=== PATIENT | female | born 1980 | race Caucasian/White ===

== ENCOUNTER 2024-01-08 10:55 | Emergency (ER) | payer MEDICAID, SELFPAY ==
[2024-01-08 10:55] VITALS: BP 121/88; PULSE 85; RESP 16; TEMP 35.6; O2SAT 99
--- NOTE | 2024-01-08 10:58 | ED.SKABFB ---
HPI - Skin/Abscess/Foreign Bdy General Chief complaint: Skin/Abscess/Foreign Body Stated complaint: foreign object in foot Time Seen by Provider: 01/08/24 10:58 Source: patient Mode of arrival: ambulatory Limitations: no limitations History of Present Illness HPI narrative: 43-year-old female presents to the ED with -- foreign body on the plantar aspect of the 1st webspace. patient was walking barefoot on 01/03/2024 when a foreign body penetrated the 1st webspace. Currently she is noted to have tenderness and erythema extending to the top of foot around the 1st webspace. --Questionable Foreign body over the lateral sole of the left foot no fever or chills MD complaint: other ( cellulitis of right 1st webspace and left lateral foot) Onset (ago): day(s) ( 5 days) Tetanus up to date: no Location: L foot and R foot Severity: mild Relieving factors: none Exacerbating factors: none Associated symptoms: denies other symptoms Treatments prior to arrival: none Related Data Allergies Allergy/AdvReac Type Severity Reaction Status Date / Time No Known Allergies Allergy Verified 01/08/24 11:09 Review of Systems Review of Systems: All systems reviewed & are unremarkable except as noted in HPI and below Constitutional: Constitutional: Reports as per HPI Eyes: Eyes: Reports as per HPI and Reports no additional eye complaints ENT: Reports system reviewed and no additional complaints, except as documented and Reports as per HPI Cardiovascular: Cardiovascular: Reports as per HPI and Reports no additional cardiovascular complaints Respiratory: Respiratory: Reports as per HPI and Reports no additional respiratory complaints Gastrointestinal: Gastrointestinal: Reports as per HPI and Reports no additional gastrointestinal complaints Genitourinary: Genitourinary: Reports no additional female genitourinary complaints and Reports as per HPI Musculoskeletal: Musculoskeletal: Reports no additional musculoskeletal complaints and Reports as per HPI Integumentary/Breasts: Comments: tenderness and redness in the right 1st webspace tenderness and redness over the left lateral foot Neurologic: Reports system reviewed and no additional complaints, except as documented and Reports as per HPI Psychiatric: Psychiatric: Reports no additional psychiatric complaints and Reports as per HPI Endocrine: Endocrine: Reports no additional endocrine complaints and Reports as per HPI Hematologic/Lymphatic: Hematologic/Lymphatic: Reports no additional hematologic/lymphatic complaints and Reports as per HPI Allergic/Immunologic: Allergic/Immunologic: Reports no additional allergic/immunologic complaints and Reports as per HPI Exam Narrative: afebrile. Vital stable. Const: General: no acute distress Nutritional Appearance: well nourished Orientation/consciousness: patient oriented x3 Limitations: no limitations HENMT: Head: normal to inspection Ears: external ears normal Face/Nose/Sinus: Normal external nose present Face and sinus: normal facial exam Mouth: Yes Normal oral and palatal mucosa present Throat: posterior oropharynx normal Eyes: Conjunctivae: conjunctivae normal Pupils: Equal, round and reactive pupils present EOM: EOMs intact bilaterally Direct Ophthalmoscopy: no photophobia Neck: Neck: normal visual inspection and no lymphadenopathy Chest: Chest palpation & inspection: normal inspection of the chest Resp: Effort & Inspection: normal respiratory effort Auscultation: clear to auscultation bilaterally Cardio: Rate: regular rate Rhythm: regular rhythm GI: GI Palp: Yes Soft to palpation Auscultation: normal bowel sounds Other: No tenderness/ rigidity / rebound. : General: Yes no CVA tenderness Back/Spine/Pelvis: Back: no CVA tenderness Skin: General skin exam: normal color Other: Right foot 1st web space-- tender skin nodule measuring 1 cm on the plantar aspect of the 1st webspace with surro
[2024-01-08] MEDS: TETANUS,DIPHTHERIA,AC PERTUSSIS ADULT 0.5 ML (ADACEL) IM (11:13)
[2024-01-08] MEDS: LIDOCAINE HCL 1% LOCAL INJ 10 ML VIAL 5 ML INFILTRATE (11:14)
[2024-01-08] MEDS: NEOMYCIN/POLYMYXIN/BACITRACIN OINTMENT PACKET 1 PACKET TOPICAL (11:42)
== END 2024-01-08 11:47 | disposition home or self-care (01) ==
LOC: CHSED 11:42
PROVIDERS: Emergency Provider Internal Medicine Critical Care Medicine
DX: S91.342A Puncture wound with foreign body, left foot, initial encounter (principal); L03.115 Cellulitis of right lower limb; Z23 Encounter for immunization; W45.8XXA Other foreign body or object entering through skin, initial encounter
CPT/HCPCS: 28190; 90715; 99283

== ENCOUNTER 2024-01-30 17:45 | Emergency (ER) | payer MEDICAID, SELFPAY ==
[2024-01-30 17:52] VITALS: BP 162/88; PULSE 98; RESP 20; TEMP 36.6; O2SAT 99
--- NOTE | 2024-01-30 23:11 | PC.NURSE ---
Patient was called out in triage area for a room; no answer
--- NOTE | 2024-01-30 23:26 | PC.NURSE ---
Patient was again called out in triage area to be taken back to a room; no answer
== END 2024-01-30 23:42 | disposition left against medical advice (07) ==
LOC: ANHED 23:42
DX: F10.239 Alcohol dependence with withdrawal, unspecified (principal); Y90.9 Presence of alcohol in blood, level not specified
CPT/HCPCS: 99199

== ENCOUNTER 2025-04-17 10:29 | Emergency (ER) | payer SELFPAY ==
--- OUTSIDE RECORDS SUMMARY | 2024-12-15 10:00 | XMS_ITS ---
Author Organization [facility] Address [address] [place], [place] [address] Care Team Providers Care Specifications Checker Name Role Phone Donald Mcrae Primary Care Provider Jayy Gonzalez Unavailable [phone] REASON FOR VISIT EXT #3,5 Social History Sex Assigned At : Social History Observation Description Sex Assigned At Female Encounters Encounter Location Date Provider Diagnosis [facility] [address] [place] [phone] 12/15/2024 Jayy Gonzalez Plan Of Treatment No Information Progress Notes * Alyssa ENGEL ADOB:1980 (44 yo F)Acc No.[id number]:12/15/2024 Patient: Franci Alyssa justin Provider: Cyrus Gonzalez DDS :1980 A ge:44 Y S ex:Female Date:12/15/2024 Address:[address] [place], [id number] Pcp:Donald Mcrae Subjective: * Chief Complaints: * E XT #3,5 Billing Information: * Procedure Codes: * Electronic signature of Didi Gonzalez DDS on 04/17/2025 at 10:30 AM SITE SUPERVISOR Sign off status: Pending * Provider: Cyrus Gonzalez DDS Date: 0 12/15/2024 Generated for Printi ng/Faxing/eTransmitting on: 1 06/18/2024 10:30 AM SITE SUPERVISOR
--- OUTSIDE RECORDS SUMMARY | 2025-01-16 03:00 | XMS_ITS ---
Author Organization [facility] Address [address] [place] [address] Care Team Providers Care Suction Dredge Dumping Supervisor Name Role Phone Migration, Provider Unavailable Unavailable REASON FOR VISIT EMR-Wallace Encounters Encounter Location Date Provider Diagnosis [facility] [address] [place] [phone] 01/16/2025 Provider Migration Plan Of Treatment Medication Medication Name Sig Start Date Stop Date Notes metroNIDAZOLE by mouth 11/19/2019 *Pick stren gth-form from Med[employer] for eRX* Macrobid by mouth 11/13/2019 *Pick strength -form from [employer] for eRX* Progress Notes * BINU ENGEL ANNDOB:[birth year] (44 yo F)Acc No.[id number]:01/16/2025 Patient: Franci GUTIERREZ BINU PERRY :1980 A ge:44 Y S ex:Female Phone: Address:[address] [place] [address], [place], [address] * Refills Stop Macrobid, by mouth Stop metroNIDAZOLE, by mouth Subjective: * Chief Complaints: * E MR-Wallace * * Date:
--- OUTSIDE RECORDS SUMMARY | 2025-01-17 03:00 | XMS_ITS ---
Author Organization [facility] Address [address] [address] Care Team Providers Care Neurological Surgeon Name Role Phone Migration, Provider Unavailable Unavailable Allergies Allergen (clinical drug ingredient) Drug/Non Drug Allergy documented on EMR Reaction Allergy Type Onset Date Status Not allergic to late x, NKDA (uncoded) Unknown Allergy Active REASON FOR VISIT EMR-Wallace Encounters Encounter Location Date Provider Diagnosis [facility] [address] [address] 01/17/2025 Provider Migration Plan Of Treatment No Information Progress Notes * BINU ENGEL ANNDOB:[birth year] (44 yo F)Acc No.[id number]:01/17/2025 Patient: Franci USHAMITUL BINU PERRY :1980 A ge:44 Y S ex:Female Phone: Address:[address] [place] [address], [place], [address] Subjective: * Chief Complaints: * E MR-Wallace * Allergies: N ot allergic to latex, NKDA: Allergy * * Date:
[2025-04-17 10:30] VITALS: BP 159/74; PULSE 74; RESP 17; TEMP 36.8; O2SAT 100
--- OUTSIDE RECORDS SUMMARY | 2025-04-17 10:31 | XMS_ITS | Patient Health Record ---
Author Organization [facility] Address [address] [place], [place] [address] Care Team Providers Care Usability Specialist Name Role Phone Thor Donald Primary Care Provider Jayy Gonzalez Unavailable [phone] Allergies Allergen (clinical drug ingredient) Drug/Non Drug Allergy documented on EMR Reaction Allergy Type Onset Date Status codeine Codeine anaphylaxis Drug Allergy Activ e Results Component Value Reference Range Flag Notes Colonoscopy Reviewed date:09/18/2024 11:47:24 AM Interpretation:Negative polyps Performing Lab: Notes/Report: Negative polyps Vaginitis Plus (VG+) with Ca ndida Reviewed date:09/22/2024 01:47:52 PM Interpretation: Performing Lab:Lora Mitchell, [place], Phone - [phone], Director - [facility] Notes/Report: and Drug Administration. by [employer] It has not been cleared or approved by the [employer] was [place] and its performance characteristics determined 463612-Kljzcjf krusei, JEFF 137570-N parapsilosis/tropicalis; 448656-Vfybvpm lusitaniae, JEFF; Test(s) 153395-Dzhksli albicans, JEFF; 359554-Yfzvvsr glabrata, JEFF; and Drug Administration. by [employer] It has not been cleared or approved by the [employer] was developed and its performance characteristics determined Megasphaera 1 Test(s) 991641- Atopobium vaginae; 519334- BVAB 2; 348354- Atopobium vaginae Low - 0 BVAB 2 Low - 0 Megasphaera 1 Low - 0 Calculate total score by adding the 3 individual bacterial vaginosis (BV) marker scores together. Total score is interpreted as follows: Total score 0-1: Indicates the absence of BV. Total score 2: Indeterminate for BV. Additional clinical data should be evaluated to establish a diagnosis. Total score 3-6: Indicates the presence of BV. Alejandrina albicans, JEFF Negative Negative Alejandrina glabrata, JEFF Negative Negative C parapsilosis/tropicalis Negative Negative This assay does not differentiate C. tropicalis and C. parapsilosis. Alejandrina lusitaniae, JEFF Negative Negative Alejandrina krusei, JEFF Negative Negative Trich vag by JEFF Positive Negative A Chlamydia trachomatis, JEFF Negative Negative Neisseria gonorrhoeae, JEFF Negative Negative Pap IG, with HPV screening ( over 30 yrs) Reviewed date:10/06/2024 02:47:41 PM Interpretation: Performing Lab:[employer] [place], [address] [place] [address], Phone - [phone], Director - [facility] Notes/Report: Clinical Information:[id number] DIAGN Comment NEGATIVE FOR INTRAEPITHELIAL LESION OR MALIGNANCY. SPECIMEN REPROCESSED FOR INTERPRETATION USING GLACIAL ACETIC ACID (GAA). ADEQ Comment Satisfactory for evaluation. Endocervical and/or squamous metaplastic cells (endocervical component) are present. CICD10 Comment Z12.4 N89.8 PERFOR Comment Ade Quinones , Piece Goods Packer ([facility]) COMM . NOTE Comment The Pap smear is a screening test designed to aid in the detection of premalignant and malignant conditions of the uterine cervix. It is not a diagnostic procedure and should not be used as the sole means of detecting cervical cancer. Both false-positive and false-negative reports do occur. . IGLBP CTIM The Thin Prep(R) Fruit Harvest Machine Operator was unable to read this specimen. Therefore a manual review was performed. HPV Aptima Negative Negative This nucleic acid amplification test detects fourteen high-risk HPV types (16,18,31,33,35,39,45,51,52 ,56,58,59,66,68) without differentiation. Comp. Metabolic Panel (14) * [facility]* Reviewed date:09/10/2024 10:03:01 AM Interpretation: Performing Lab:[employer] [place], [address], Phone - [phone], Director - [facility] Notes/Report: Glucose 93 70-99 mg/dL BUN 8 6-24 mg/dL Creatinine 0.61 0.57-1.00 mg/dL eGFR 112 >59 mL/min/1.73 BUN/Creatinine Ratio 13 9-23 Sodium 140 134-144 mmol/L Potassium 4.0 3.5-5.2 mmol/L Chloride 102 96-106 mmol/L Carbon Dioxide, Total 23 20-29 mmol/L Calcium 9.5 8.7-10.2 mg/dL Protein, Total 7.1 6.0-8.5 g/dL Albumin 4.5 3.9-4.9 g/dL Globulin, Total 2.6 1.5-4.5 g/dL Bilirubin, Total 0.3 0.0-1.2 mg/dL Alkaline Phosphatase 71 44-121 IU/L AST (SGOT) 18 0-40 IU/L ALT (SGPT) 24 0-32 IU/L Lipid Panel *[facility]* Reviewed date:09/10/2024 10:02:59 AM Interpretation: Performing Lab:[facility] [place], [address] [place] [address], [place], Phone - [phone], Director - [facility] Notes/Report: Cholesterol, Total 217 100-199 mg/dL H Triglycerides 70 0-149 mg/dL HDL Cholesterol 71 >39 mg/dL VLDL Cholesterol Ko 12 5-40 mg/dL LDL Chol Calc (NIH) 134 0-99 mg/dL H Reason For Referral Reason 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 Hairston's office. They will review referral and contact pt to schedule appt. , [address] [place] [address], P: [phone], F: [phone] Clinical Notes Keri Avelar 03/2025 01:38:43 PM >called and spoke to patient Referral Priority Routine Reason Colonoscopy family history of colon cancer Diagnosis 1 Family history of co omer cancer in mother (Z80.0) Referral Organization [facility] Referring Provider First Name Donald Referring Provider Last Name Thor Referring Provider Speciality Nurse Sridhar munguia Referred Provider Fredy Russell oenterology Referred Provider Specialty Gastroentero jacey General Notes CaseyreganKeri 03/2025 08:50:59 AM >Referral has been faxed to [facility] Gastroenterology. They will review referral and call pt to schedule an appt. , [address] , [place] [address], P:[phone], F:[phone] Clinical Notes Keri Avelar 01:08:17 PM >called and left a voicemail with referral information, Keri Avelar 09/11/2024 09:03:13 AM >called and spoke to patient Referral Priority Routine Referral Appointment Date 09/16/2024 Medications Medication SIG (Take, Route, Frequency, Duration) Notes Start Date End Date Status Zolpidem Tartrate 10MG Tablet TAKE ONE TABLET BY MOUTH ONCE DAILY AT BEDTIME prn Not-Taking metroNIDAZOLE 500 MG Tablet 1 tablet Orally twice a day; Duration: 7 days 09/22/2024 Active Phentermine HCl 37.5 MG Tablet 1 tablet Orally Once a day in morning; Duration: 30 days 07/09/2018 Not-Taking Social History Tobacco Use: Social History Observation Description Date Details (start date - stop date) Current Smoker NA - NA Sex Assigned At : Social History Observation Description Sex Assigned At Female Social History Social Determinants Social Info Question Answer Notes PRAPARE Date Completed/Updated: 09/03/2024 What is your current housing situation? I do not have housing (staying with others, in a hotel, in a penitentiary, living outside on the street, on a beach, or in a park) Are you worried about losing your housing? No What is the highest level of school that you have finished? 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 Check all that apply I do not have problems meeting my needs Has lack of transportation k ept you from medical appointments, meetings, work or from getting things needed for daily living? No How often do you see or talk to people that you care about and feel close to? (For example: talking to friends on the phone, visiting friends or family, going to catholic or club meetings) 3 to 5 times a week How stressed are you? Stress is when someone feels tense, nervous, anxious, or cant sleep at night because their mind is troubled A little bit In the past year have you sp ent more than 2 nights in a row in a senior living, chcf, mcc center, or juvenile correctional facility? Yes Do you feel physically and e motionally safe where you currently live? Yes In the past year, have you b een afraid of your partner or ex-partner? Yes Are you a refugee? No What country are you from? [place] What was your release date? 01/30/2024 Sexual History: Social Info Question Answer Notes Details of Sexual History Are you sexually active? No Are you having any sexual problems? No Have you had any sexually transmitted diseases ( STDs)? No How many sexual partners have you had? 8 Sexual Abuse History: none, has safety plan Sexual History Had sex in the past 12 months (vaginal, oral, or anal)? Yes with Men only Use protection? No Have you ever had a Sexually transmitted disease ? Yes Chlamydia? Yes GC? No Syphilis? No Herpes? No Tobacco Use: Social Info Question Answer Notes Tobacco Control (Standard) Tobacco use: Current smoker How often do you smoke cigarettes? Every day How many cigarettes a day do you smoke? 6-10 How soon after you wake up do you smoke your first cigarette? 6-30 minutes Are you interested in quitting? Not ready to quit Tobacco use other than smoking: Do you vape? No Are you an other tobacco user? Yes Additional Details Category Social Info Options Details Miscellaneous: Caffeine: yes more than 4 c ups per day Vital Signs Heart Rate 84 /min 09/17/2024 Temperature 99.5 degrees Fahrenheit 09/17/2024 Respiratory Rate 16 /min 09/17/2024 Blood pressure diastolic 82 mm Hg 11/03/2024 Oximetry 97 % 09/17/2024 Weight-kg 78.56 kg 09/17/2024 Height 68 in 11/03/2024 Blood pressure systolic 126 mm Hg 11/03/2024 Weight 173.2 lbs 09/17/2024 BMI 26.33 kg/m2 09/17/2024 Encounters Encounter Location Date Provider Diagnosis [address] [place] [address] 09/03/2024 Donald Thor Encounter to establish care Z76.89 ; 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 ; Family history of colon cancer in mother Z80.0 ; Encounter for routine laboratory testing Z01.89 and Screening mammogram for breast cancer Z12.31 [facility] [address] [facility] [address] 09/17/2024 Donald Dialloz Encounter for screening for cervical cancer Z12.4 and Vaginal discharge N89.8 [facility] [address] [place] [address] 09/24/2024 Jayy Gonzalez Encounter for dental examination and cleaning with abnormal findings Z01.21 ; Dental caries, unspecified K02.9 and Dental caries extending into dentin K02.[address] [place] [address] 11/03/2024 Jayy Gonzlaez [facility] [address] [place] [phone] 09/09/2024 Donald Thor [facility] [address] [place] [address] 09/22/2024 Donald Brysonntz Trichomonas infection A59.9 Assessments Encounter Date Diagnosis (ICD Code) Assessment Notes Treatment Notes Treatment Clinical Notes Section Notes 09/03/2024 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) 09/03/2024 Encounter to establish care (ICD-10 - Z76.89) 09/17/2024 Encounter for screening for cervical cancer (ICD-10 - Z12.4) 09/22/2024 Trichomonas infection (ICD-10 - A59.9) 09/24/2024 Encounter for dental examination and cleaning with abnormal findings (ICD-10 - Z01.21) 09/17/2024 Vaginal discharge (ICD-10 - N89.8) 09/24/2024 Dental caries, unspecified (ICD-10 - K02.9) 09/03/2024 Family history of colon cancer in mother (ICD-10 - Z80.0) 09/03/2024 Encounter for routine laboratory testing (ICD-10 - Z01.89) 09/24/2024 Dental caries extending into dentin (ICD-10 - K02.62) 09/03/2024 Screening mammogram for breast cancer (ICD-10 - Z12.31) Plan Of Treatment Pending Test Test Name Order Date Mammogram Screening w/ RANDY 09/03/2024 Future Test Test Name Order Date Vaginitis Plus (VG+) with Alejandrina 2024 Insurance Providers Payer Name Payer Address Payer Phone Subscriber Number Group Number Insured Name Patient Relationship to Insured Coverage Start Date Coverage End Date [employer] MEDICAL [address] [place] [phone] [id number] Alyssa Charlton Self - patient is the insured [employer] Medicaid DENTAL [address] [place] [address] [id number] Alyssa Charlton Self - patient is the insured Medical (General) History Medical History History ICD Code cold sores/fever blisters headaches Surgical History Surgery Date(Month/Year) tubal ligation 2016 Hospitalization History Reason Date(Month/Year) vaginal delivery 2001 vaginal delivery 2000 Tubal ligation 2016 vaginal delivery 2016
--- OUTSIDE RECORDS SUMMARY | 2025-04-17 10:31 | XMS_ITS | Patient Health Record ---
Author Organization [facility] Address [address] [address] [place] [address] Care Team Providers Care Bandoleer Straightener Stamper Name Role Phone Migration, Provider Unavailable Unavailable Reason For Referral No Information Encounters Encounter Location Date Provider Diagnosis [facility] [address] [address] [place] [address] 01/16/2025 Provider Migration [facility] [address] [address] [place] [address] 01/17/2025 Provider Migration Plan Of Treatment No Information
[2025-04-17 10:55] VITALS: O2SAT 96
--- NOTE | 2025-04-17 10:56 | PC.NURSE ---
covid swab sent to lab
--- NOTE | 2025-04-17 11:01 | ED_ITS ---
HPI - URI/Sore Throat General Chief Complaint: Upper Respiratory Infection Stated Complaint: sickness Time Seen by Provider: 04/17/25 11:01 Source: patient Mode of arrival: ambulatory Limitations: no limitations History of Present Illness HPI Narrative: Patient is a 44-year-old female with left upper jaw pain due to poor dentition and cracked teeth. She also has a complaint of sinus infection. MD elicited complaint: nasal congestion, sinus pain and other (Tooth pain) Pertinent past history: other (None) Onset (ago): week(s) (One) Consistency: constant Severity: moderate Pain scale (0-10): 5 Description of mucous: yellow Able to tolerate fluids by mouth: Yes Exacerbating factors: nothing Relieving factors: nothing Context: other (Patient has poor dentition and a cracked tooth in the left upper jaw as well as sinus pain and pressure) Associated symptoms: myalgias Treatments prior to arrival: none Related Data Allergies Allergy/AdvReac Type Severity Reaction Status Date / Time Penicillins Allergy Rash Verified 04/17/25 10:50 codeine AdvReac Hallucinati Verified 04/17/25 10:50 ng Review of Systems Review of Systems: All systems reviewed & are unremarkable except as noted in HPI and below Constitutional: Constitutional: Reports no additional constitutional complaints Eyes: Eyes: Reports no additional eye complaints ENT: Reports system reviewed and no additional complaints, except as documented Cardiovascular: Cardiovascular: Reports no additional cardiovascular complaints Respiratory: Respiratory: Reports no additional respiratory complaints Gastrointestinal: Gastrointestinal: Reports no additional gastrointestinal complaints Genitourinary: Genitourinary: Reports no additional female genitourinary complaints Musculoskeletal: Musculoskeletal: Reports no additional musculoskeletal complaints Integumentary/Breasts: Skin/Breast: Reports system reviewed and no additional complaints, except as docu Neurologic: Reports system reviewed and no additional complaints, except as documented Psychiatric: Psychiatric: Reports no additional psychiatric complaints Endocrine: Endocrine: Reports no additional endocrine complaints Hematologic/Lymphatic: Hematologic/Lymphatic: Reports no additional hematologic/lymphatic complaints Allergic/Immunologic: Allergic/Immunologic: Reports no additional allergic/immunologic complaints Exam Const: General: healthy appearing Nutritional Appearance: well nourished Orientation/consciousness: patient oriented x3 HENMT: Head: normal to inspection Ears: external ears normal Face/Nose/Sinus: Normal external nose present Other: Left upper jaw has cracked tooth in the far back as well as some poor decay in the adjacent teeth with gingivitis but no abscess; tender maxillary sinuses bilaterally Eyes: Conjunctivae: conjunctivae normal Pupils: Equal, round and reactive pupils present EOM: EOMs intact bilaterally Neck: Neck: normal visual inspection Chest: Chest palpation & inspection: normal inspection of the chest Resp: Effort & Inspection: normal respiratory effort and not labored Auscultation: clear to auscultation bilaterally and no crackles Cardio: Rate: regular rate Rhythm: regular rhythm Heart sounds: no murmurs GI: Inspection: non-distended GI Palp: Yes Soft to palpation and No Tenderness to palpation present (GI) Auscultation: normal bowel sounds : General: Yes bladder normal to palpation Back/Spine/Pelvis: Back: no CVA tenderness Skin: General skin exam: normal color Rashes: no rashes Wounds: no wounds Neuro: General: patient oriented x3, moves all extremities and no meningeal signs Extrem: General: normal to inspection, no clubbing, cyanosis or edema and no pedal edema Psych: Mental Status: mental status grossly normal Affect: normal affect Attitude: cooperative Course Vital Signs Vital signs: Vital Signs Temperature 36.8 C 04/17/25 10:30 Pulse Rate 74 04/17/25 10:30 Respiratory Rate 17 04/17/25 10:30 Blood Pressure 159/74 H 04/17/25 10:30 Pulse Oximetry 100 04/17/25 10:30 Oxygen Delivery Room Air 04/17/25 10:30 Temperature 36.7 C 04/17/25 12:15 Pulse Rate 72 04/17/25 12:15 Respiratory Rate 20 04/17/25 12:15 Blood Pressure 148/72 H 04/17/25 12:15 Pulse Oximetry 100 04/17/25 12:15 Oxygen Delivery Room Air 04/17/25 12:15 [facility] Narrative Medical decision making narrative: Patient is a 44-year-old female with sinus pain and pressure with dental pain in left upper jaw. Patient allergic to amoxicillin so we will use clindamycin which will cross cover sinus and dental pain. COVID panel testing. Differential Diagnosis Differential Diagnosis: Sinusitis, dental decay and fracture, TMJ Lab Data [facility] Lab Attestation statement: I personally reviewed the patient's lab results. Labs: Lab Results 04/17/25 Range/Units 10:53 Influenza A (RT-PCR) Negative (Negative) Influenza B (RT-PCR) Negative (Negative) RSV (RT-PCR) Negative (Negative) SARS-CoV-2 RNA (RT-PCR) Negative (Negative) Discharge Plan Discharge Clinical Impression: Maxilla pain Sinusitis Qualifiers: Sinusitis location: other Chronicity: acute Recurrence: non-recurrent Qualified Code(s): J01.80 - Other acute sinusitis Patient Disposition: Home Condition: Stable Instructions: Antibiotic Form, Toothache (ED) Additional Instructions: Please see a dentist as soon as possible. Patient Language: [place] Prescriptions: New clindamycin HCl [Cleocin HCl] 300 mg capsule 300 mg PO Q8H 10 Days Qty: 30 0RF Follow-up/Referrals: Daujan Ordonez MD [Physician, Internal Medicine] Time of Disposition: 12:09
[2025-04-17 11:40] LABS: Influenza A QL RT-PCR Negative (Negative); Influenza B QL RT-PCR Negative (Negative); RSV RNA, RT-PCR Negative (Negative); SARS-CoV-2 RNA PCR Negative (Negative)
[2025-04-17 12:15] VITALS: BP 148/72; PULSE 72; RESP 20; TEMP 36.7; O2SAT 100
== END 2025-04-17 12:15 | disposition home or self-care (01) ==
PROVIDERS: Emergency Provider Emergency Medicine; Referring Provider Internal Medicine
DX: J01.80 Other acute sinusitis (principal); R68.84 Jaw pain; Z20.822 Contact with and (suspected) exposure to COVID-19
CPT/HCPCS: 87637; 99283